=== PATIENT | male | born 1940 | race Caucasian/White ===

== ENCOUNTER 2017-09-04 19:41 | Emergency (ER) | payer MEDICARE ==
[2017-09-04] MEDS ORDERED: NS 0.9% 1000 ML*IV.FLUID IV ONE (22:38)
[2017-09-04] MEDS ORDERED: Acetaminophen TAB* 325 MG PO ONE (22:38)
[2017-09-04] MEDS ORDERED: Albuterol 2.5 MG/3 ML NEB.SOL* (0.083%) INH PRN (22:38)
[2017-09-04] MEDS ORDERED: Albuterol/Ipratropium NEB.SOL* Albuterol 2.5 MG/Ipratropium 0.5 MG 3 ML INH PRN (22:38)
[2017-09-04] MEDS ORDERED: Piperacillin/Tazobac ADVAN(*) 3.375 GM in NS 0.9% 100 ML* 100 ML IVPB ONE (22:38)
[2017-09-04] MEDS ORDERED: Vancomycin(*) 1,500 MG in NS 0.9% 500 ML* 500 ML IVPB ONE (23:00)
[2017-09-04] MEDS ORDERED: Vancomycin(*) 1,000 MG VIAL IVPB SCH (23:00)
[2017-09-04 23:13] LABS: ABS Basophils 0 10^3/ul (0-0.2); ABS Eosinophils 0.1 10^3/ul (0-0.6); ABS Lymphocytes 0.9 10^3/ul (1.0-4.8); ABS Monocytes 1.3 10^3/ul (0-0.8); ABS Neutrophils 8.7 10^3/ul (1.5-7.7); ABS Nucleated RBC 0 10^3/ul; Hematocrit 22 % (42-52); Hemoglobin 7.4 g/dl (14.0-18.0); Lymphocyte % 8.2 % (25-47); Mean Corpuscular HGB Conc 33 g/dl (31-36); Mean Corpuscular Hemoglobin 30 pg (27-31); Mean Corpuscular Volume 89 fL (80-94); Mean Platelet Volume 7 um3 (7.4-10.4); Nucleated Red Blood Cells % 0; Platelet Count 279 10^3/ul (150-450); Red Blood Count 2.51 10^6/ul (4.0-5.4); Red Cell Distribution Width 18 % (10.5-15)
[2017-09-04 23:26] LABS: EGFR Non-African American 69.6 (>60)
[2017-09-04 23:32] LABS: INR 6.73 (0.77-1.02)
[2017-09-04] MEDS ORDERED: Iodixanol* (CONTRAST) 320 MG/ML 100 ML SDV IV ONE (23:56)
[2017-09-05] MEDS ORDERED: Potassium Chlor TAB* 20 MEQ TAB.ER PO ONE (01:25)
[2017-09-05 02:55] LABS: Urine Appearance Cloudy; Urine Blood 2+ (Negative); Urine Color Amber; Urine Ketones Negative (Negative); Urine Protein 1+(30 mg/dL) (Negative); Urine Specific Gravity 1.024 (1.010-1.030); Urine Urobilinogen Positive (Negative)
--- NOTE | 2017-09-05 03:06 | ED ---
Julio Mccarty Tecjoon, scribed for Lorenzo Christine MD on 09/04/17 at 2241 . Complex/Multi-Sys Presentation - HPI Summary HPI Summary: This patient is a 76 year old male sent to [facility] on advice of MD accompanied by family with a chief complaint of abnormal INR levels (>7) since today at approximately 1900. Patient takes 4mg of Coumadin every night for A. Fib, mechanical valve. When he came home on Sunday, it was 2.5. The pain is rated 5/ 10 in severity from his gallbladder. Patient additionally reports very dark, odorous urine, SOB, pain from gallbladder, vomiting, loss of appetite, chills, wheezing. Patient is coughing up dark blood. Patient denies dizziness[place], and an abnormally high liver enzyme level. Patient also has an hx pulmonary embolism. - History Of Current Complaint Chief Complaint: EDGeneral Time Seen by Provider: 09/04/17 22:10 Hx Obtained From: Patient, Family/Computer Console Operator Onset/Duration: Still Present Timing: Constant Severity Initially: Moderate - 5/10 Aggravating Factor(s): nothing Alleviating Factor(s): nothing Associated Signs And Symptoms: Positive: Other. Negative: Dizziness - reports very dark, odorous urine, SOB, pain from gallbladder, vomiting, loss of appetite , chills, wheezing. Patient is coughing up dark blood - Allergies/Home Medications Allergies/Adverse Reactions: Allergies Allergy/AdvReac Type Severity Reaction Status Date / Time Diazepam [From Valium] Allergy See Comment Verified 09/04/17 19:53 pollen Allergy Runny Nose Uncoded 09/04/17 19:53 PMH/Surg Hx/FS Hx/Imm Hx Previously Healthy: No Endocrine/Hematology History: Denies: Hx Diabetes, Hx Thyroid Disease Cardiovascular History: Reports: Hx Hypertension - ON MEDS, Other Cardiovascular Problems/Disorders - AORTIC VALVE Respiratory History: Reports: Hx Chronic Obstructive Pulmonary Disease (COPD), Hx Pulmonary Embolism Denies: Hx Asthma GI History: Reports: Other GI Disorders - Pancreatits, Pancreatic cancer Denies: Hx Ulcer - Cancer History Cancer Type, Location and Year: prostate - Surgical History Surgery Procedure, Year, and Place: CABG, aortic valve replaced - Immunization History Date of Influenza Vaccine: 05/2017 Infectious Disease History: No Infectious Disease History: Denies: Hx Hepatitis, Hx Human Immunodeficiency Virus (HIV), Traveled Outside the [place] in Last 30 Days - Family History Known Family History: Positive: Hypertension - Social History Occupation: Retired Alcohol Use: Rare Hx Substance Use: No Substance Use Type: Reports: None Hx Tobacco Use: Yes Smoking Status (MU): Light Every Day Tobacco Smoker Type: Cigarettes Review of Systems Constitutional: Negative - dizziness Positive: Shortness Of Breath, Other - wheezing, coughing up blood Positive: Vomiting, Other - pain from gallbladder Positive: other - dark, odorous urin All Other Systems Reviewed And Are Negative: Yes Physical Exam - Summary Physical Exam Summary: VITAL SIGNS: Reviewed. GENERAL: Patient is an ill-looking, pale male who is lying in the stretcher. Patient looks like he has jaundice. HEAD AND FACE: No signs of trauma. No ecchymosis, hematomas or skull depressions. No sinus tenderness. EYES: PERRLA, EOMI x 2, Eyes are icteric. EARS: Hearing grossly intact. Ear canals and tympanic membranes are within normal limits. MOUTH: Oropharynx within normal limits. NECK: Supple, trachea is midline, no adenopathy, no JVD, no carotid bruit, no c- spine tenderness, neck with full ROM. CHEST: Symmetric, no tenderness at palpation LUNGS: Lungs have bilateral expiratory wheezes, with rhonchi. CVS: Regular rate and rhythm, S1 and S2 present, no murmurs or gallops appreciated. ABDOMEN: Mild diffuse tenderness EXTREMITIES: FROM in all major joints, no edema, no cyanosis or clubbing. NEURO: Alert and oriented x 3. No acute neurological deficits. Speech is normal and follows commands. SKIN: Dry and warm Triage Information Reviewed: Yes Vital Signs On Initial Exam: Initial Vitals Temp Pulse Resp BP Pulse Ox 98.2 F 72 16 129/52 95 09/04/17 19:45 09/04/17 19:45 09/04/17 19:45 09/04/17 19:45 09/04/17 19:45 Vital Signs Reviewed: Yes Diagnostics - Vital Signs Vital Signs Temp Pulse Resp BP Pulse Ox 09/04/17 19:45 98.2 F 72 16 129/52 95 - Laboratory Lab Results: Lab Results 09/04/17 09/04/17 09/04/17 Range/Units 22:30 22:30 22:30 WBC (3.5-10.8) 10^3/ul RBC (4.0-5.4) 10^6/ul Hgb (14.0-18.0) g/dl Hct (42-52) % MCV (80-94) fL MCH (27-31) pg MCHC (31-36) g/dl RDW (10.5-15) % Plt Count (150-450) 10^3/ul MPV (7.4-10.4) um3 Neut % (Auto) (38-83) % Lymph % (Auto) (25-47) % Norman % (Auto) (1-9) % Eos % (Auto) (0-6) % Baso % (Auto) (0-2) % Absolute Neuts (auto) (1.5-7.7) 10^3/ul Absolute Lymphs (auto) (1.0-4.8) 10^3/ul Absolute Monos (auto) (0-0.8) 10^3/ul Absolute Eos (auto) (0-0.6) 10^3/ul Absolute Basos (auto) (0-0.2) 10^3/ul Absolute Nucleated RBC 10^3/ul Nucleated RBC % INR (Anticoag Therapy) 6.73 H* (0.77-1.02) APTT 60.2 H (26.0-36.3) seconds Sodium 129 L (133-145) mmol/L Potassium 3.3 L (3.5-5.0) mmol/L Chloride 97 L (101-111) mmol/L Carbon Dioxide 24 (22-32) mmol/L Anion Gap 8 (2-11) mmol/L BUN 16 (6-24) mg/dL Creatinine 1.04 (0.67-1.17) mg/dL Est GFR ( Amer) 89.5 (>60) Est GFR (Non-Af Amer) 69.6 (>60) BUN/Creatinine Ratio 15.4 (8-20) Glucose 110 H (70-100) mg/dL Lactic Acid (0.5-2.0) mmol/L Calcium 8.7 (8.6-10.3) mg/dL Total Bilirubin 3.80 H (0.2-1.0) mg/dL AST 124 H (13-39) U/L ALT 135 H (7-52) U/L Alkaline Phosphatase 262 H (34-104) U/L Troponin I 0.04 H* (<0.04) ng/mL C-Reactive Protein 160.12 H (< 5.00) mg/L Total Protein 6.3 L (6.4-8.9) g/dL Albumin 3.2 (3.2-5.2) g/dL Globulin 3.1 (2-4) g/dL Albumin/Globulin Ratio 1.0 (1-3) Urine Color Urine Appearance Urine pH (5-9) Ur Specific [place] (1.010-1.030) Urine Protein (Negative) Urine Ketones (Negative) Urine Blood (Negative) Urine Nitrate (Negative) Urine Bilirubin (Negative) Urine Urobilinogen (Negative) Ur Leukocyte Esterase (Negative) Urine WBC (Auto) (Absent) Urine RBC (Auto) (Absent) Ur Squamous Epith Cells (Absent) Ur Renal Epithelial Cell (Absent) Urine Bacteria (Absent) Urine Glucose (Negative) Blood Type A Positive Antibody Screen Negative Crossmatch See Detail 09/04/17 09/04/17 09/05/17 Range/Units 22:30 22:30 02:40 WBC 11.0 H (3.5-10.8) 10^3/ul RBC 2.51 L (4.0-5.4) 10^6/ul Hgb 7.4 L (14.0-18.0) g/dl Hct 22 L (42-52) % MCV 89 (80-94) fL MCH 30 (27-31) pg MCHC 33 (31-36) g/dl RDW 18 H (10.5-15) % Plt Count 279 (150-450) 10^3/ul MPV 7 L (7.4-10.4) um3 Neut % (Auto) 78.6 (38-83) % Lymph % (Auto) 8.2 L (25-47) % Norman % (Auto) 11.9 H (1-9) % Eos % (Auto) 1.0 (0-6) % Baso % (Auto) 0.3 (0-2) % Absolute Neuts (auto) 8.7 H (1.5-7.7) 10^3/ul Absolute Lymphs (auto) 0.9 L (1.0-4.8) 10^3/ul Absolute Monos (auto) 1.3 H (0-0.8) 10^3/ul Absolute Eos (auto) 0.1 (0-0.6) 10^3/ul Absolute Basos (auto) 0 (0-0.2) 10^3/ul Absolute Nucleated RBC 0 10^3/ul Nucleated RBC % 0 INR (Anticoag Therapy) (0.77-1.02) APTT (26.0-36.3) seconds Sodium (133-145) mmol/L Potassium (3.5-5.0) mmol/L Chloride (101-111) mmol/L Carbon Dioxide (22-32) mmol/L Anion Gap (2-11) mmol/L BUN (6-24) mg/dL Creatinine (0.67-1.17) mg/dL Est GFR ( Amer) (>60) Est GFR (Non-Af Amer) (>60) BUN/Creatinine Ratio (8-20) Glucose (70-100) mg/dL Lactic Acid 1.3 (0.5-2.0) mmol/L Calcium (8.6-10.3) mg/dL Total Bilirubin (0.2-1.0) mg/dL AST (13-39) U/L ALT (7-52) U/L Alkaline Phosphatase (34-104) U/L Troponin I (<0.04) ng/mL C-Reactive Protein (< 5.00) mg/L Total Protein (6.4-8.9) g/dL Albumin (3.2-5.2) g/dL Globulin (2-4) g/dL Albumin/Globulin Ratio (1-3) Urine Color Te[place] Urine Appearance Cloudy Urine pH 6.0 (5-9) Ur Specific [place] 1.024 (1.010-1.030) Urine Protein 1+(30 mg/dl) H (Negative) Urine Ketones Negative (Negative) Urine Blood 2+ H (Negative) Urine Nitrate Negative (Negative) Urine Bilirubin Negative (Negative) Urine Urobilinogen Positive H (Negative) Ur Leukocyte Esterase 3+ H (Negative) Urine WBC (Auto) 3+(>20/hpf) H (Absent) Urine RBC (Auto) Trace(0-2/hpf) (Absent) Ur Squamous Epith Cells Present H (Absent) Ur Renal Epithelial Cell Present H (Absent) Urine Bacteria 3+ H (Absent) Urine Glucose Negative (Negative) Blood Type Antibody Screen Crossmatch Result Diagrams: 09/04/17 22:30 09/04/17 22:30 Lab Statement: Any lab studies that have been ordered have been reviewed, and results considered in the medical decision making process. - CT CT Chest/Abd/Pel CT Interpretation: Positive (See Comments) - Given the patients history of hemoptysis, the left lower lobe densities may alternatively represent hemorrhage. ED physician has reviewed this radiology report. CT Interpretation Completed By: Radiologist Complex Multi-Symp Course/Dx Course Of Treatment: Bloodwork Obtained. Urinalysis Obtained. In the ED course the patient was given Piperacillin, Vancomycin, Iodixanol, Albuterol, Tylenol. We discussed patient care with [facility]. The ED Doctor, Dr. Resendiz agreed to accept transfer. I shared lab and imaging results with family and explained situation with them. The diagnosis is 1. Coagulopathy 2. obstructive jaundice 3. large abdominal hematoma 4.Hemaptosis. Critical hour 70 minutes. - Diagnoses Provider Diagnoses: Coagulopathy, Obstructive jaundice, large abdominal hematoma, Hemoptysis, UTI ( urinary tract infection) - Physician Notifications Discussed Care Of Patient With: Kacy Resendiz - ED Doctor Time Discussed With Above Provider: 02:40 Instructed by Provider To: Transfer - [facility] Admit/Transition Orders Completed By ED Provider: Yes - Critical Care Time Critical Care Time: 75-104 min Discharge - Discharge Plan Condition: Critical Disposition: TRANS HIGHER LVL OF CARE FAC Discharge Disposition Comment: Transferred to [facility] Referrals: Salty Husain, LINUX KERNEL ENGINEER [Primary Care Provider] - The documentation as recorded by the Julio milian Tecjoon accurately reflects the service I personally performed and the decisions made by me, Lorenzo Christine MD.
[2017-09-05 03:50] VITALS: BP 132/57
--- NOTE | 2017-09-05 08:12 | RAD ---
INDICATION: Shortness of breath. COMPARISON: Chest x-ray dated July 06, 2017 TECHNIQUE: Single AP portable view of the chest was obtained. FINDINGS: Image quality is compromised due to the relative inferiority of a portable chest x-ray. There has been interval placement of a left subclavian vein Mediport with the tip terminating at the superior vena cava. The heart and mediastinum exhibit normal size and contour. There is patchy density obscuring the left lung base extending to the left hilum and causing left costophrenic angle blunting. The right lung and upper left lung are otherwise clear. Visualized bones are normal for the patient's age. IMPRESSION: Infiltrate at the left lung base with obscuration of left hemidiaphragm could represent pneumonia, atelectasis or less likely focal pulmonary edema.
--- NOTE | 2017-09-05 08:25 | RAD ---
INDICATION: Elevated INR. Jaundice. Biliary stent. Clinical concern for potential PE. COMPARISON: July 08, 2017 CT abdomen pelvis. TECHNIQUE: Multidetector CT images were obtained from the lung apices to the ischial tuberosities with 88 mL Visipaque 320 IV contrast. No oral contrast administered. Pulmonary angiogram protocol. 3-D arterial reconstructions of the thoracic aorta. CHEST REPORT: Coarse reticular markings and innumerable spherical mass lesions at the LEFT lower lobe with dominant conglomerate of mass lesions measuring up to 4.4 cm AP by 5.9 cm transverse at the basilar segments new compared with the July 08, [address] Less marked coarsened interstitial markings at the RIGHT lung base. Negative for pleural effusion or pneumothorax. Top normal 1 cm short axis LEFT infrahilar lymph node. Remaining thoracic lymph nodes are subcentimeter short axis. Negative for cardiomegaly or pericardial effusion. Mild atherosclerotic plaque of normal diameter thoracic aorta. Negative for aortic dissection. Prosthetic aortic valve. No filling defects are identified from the main to the subsegmental pulmonary arteries to indicate presence of a pulmonary embolism. Median sternotomy wires. Negative for suspicious thoracic osseous lesions. 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 CHEST IMPRESSION: 1. Given marked interval change compared with the July 08, 2017 CT the nodular consolidation and interstitial infiltrate at the LEFT lower lobe is most suspicious for pneumonia however neoplasm is not excluded. Correlate with clinical assessment and consider short interval follow-up after therapy for pneumonia to assess for response. In absence of response to antimicrobial therapy tissue sampling would be suggested for histopathologic assessment. 2. Negative for pulmonary embolism. ABDOMEN PELVIS REPORT: Biliary stent in place. Unchanged mild intrahepatic biliary dilatation. Associated pneumobilia. Subcentimeter cyst at the LEFT medial hepatic segment. Cholelithiasis without additional CT abnormality of the gallbladder. Moderately atrophic pancreas. Ill-defined hypodense and mildly rounded in morphology of the uncinate process of the pancreas without change. Negative for peripancreatic inflammatory change. Unremarkable spleen. Negative for CT abnormality of the upper GI, small bowel, or medially extending appendix. Mild colonic diverticulosis without findings of diverticulitis. Negative for ascites, free air, hernias. Unremarkable adrenal glands. Small bilateral renal cortical cysts and larger parapelvic RIGHT renal cyst. No suspicious focal renal lesions. Bilateral delayed pyelograms and nephrograms. Unremarkable nondilated ureters. Partially distended urinary bladder is unremarkable. Symmetric seminal vesicles. 1.1 cm portal caval lymph node within normal limits. Negative for lymphadenopathy. Atherosclerotic plaque of normal diameter abdominal aorta and iliac arteries. Physiologic distention of the IVC. LEFT iliacus muscle retroperitoneal hematoma measuring up to 4.7 cm AP by 6.8 cm transverse extending over 12 cm cephalocaudal. Negative for suspicious focal osseous lesions. ABDOMEN PELVIS IMPRESSION: 1. Biliary stent in place with unchanged mild intrahepatic biliary dilatation. 2. Cholelithiasis without additional CT abnormality of the gallbladder. 3. Ill-defined hypodense and mildly rounded in morphology of the uncinate process of the pancreas possibly representing a neoplastic lesion without change. 4. Bilateral delayed nephrograms and pyelograms without obstructive uropathy. Correlate for acute pre or intrarenal renal failure. 5. LEFT iliacus muscle retroperitoneal hematoma measuring up to 4.7 cm AP by 6.8 cm transverse extending over 12 cm cephalocaudal
--- NOTE | 2017-09-05 08:36 | ED ---
Progress - Progress Note Progress Note: 09/05/17 0834: Dr. Churchill calls attention to a difference from the night imaging reading in that there are delayed bilateral nephrograms and pyelograms without obstructive uropathy which can indicate acute prerenal or acute renal failure. Pt was transferred to [facility]. Will communicate this information to [facility] and fax the updated report of the CTA chest/abd/pelvis B Leonard KAN 09/05/16 0850. Course/Dx - Course Course Of Treatment: Bloodwork Obtained. Urinalysis Obtained. In the ED course the patient was given Piperacillin, Vancomycin, Iodixanol, Albuterol, Tylenol. We discussed patient care with [facility]. The ED Doctor, Dr. Resendiz agreed to accept transfer. I shared lab and imaging results with family and explained situation with them. The diagnosis is 1. Coagulopathy 2. obstructive jaundice 3. large abdominal hematoma 4.Hemaptosis. Critical hour 70 minutes. - Diagnoses Provider Diagnoses: Coagulopathy, Obstructive jaundice, large abdominal hematoma, Hemoptysis, UTI ( urinary tract infection) - Provider Notifications Time Discussed With Above Provider: 02:40 Instructed by Provider To: Transfer - [facility] Admit/Transition Orders Completed By ED Provider: Yes - Critical Care Time Critical Care Time: 75-104 min
--- NOTE | 2017-09-07 08:46 | PN ---
Progress Note - Progress Note Date of Service: 09/04/17 Note: Patient urine grew enterobacter species He was transferred to a higher level for urology problems Nothing further at this time.
--- NOTE | 2017-09-08 12:30 | ED ---
Progress - Progress Note Progress Note: 09/05/17 0834: Dr. Churchill calls attention to a difference from the night imaging reading in that there are delayed bilateral nephrograms and pyelograms without obstructive uropathy which can indicate acute prerenal or acute renal failure. Pt was transferred to [facility]. Will communicate this information to [facility] and fax the updated report of the CTA chest/abd/pelvis Tamar Valle MD 09/05/16 0864. UPDATE: Urine final cx reveals klebsiella pneum >100,000. Sens's returned as well. Aerobic blood cx's reveal enterobacter species - sens's also available. Pt was transferred - will fwd results to [facility]. tangela Bronson clerk, aware. Course/Dx - Course Course Of Treatment: Bloodwork Obtained. Urinalysis Obtained. In the ED course the patient was given Piperacillin, Vancomycin, Iodixanol, Albuterol, Tylenol. We discussed patient care with [facility]. The ED Doctor, Dr. Resendiz agreed to accept transfer. I shared lab and imaging results with family and explained situation with them. The diagnosis is 1. Coagulopathy 2. obstructive jaundice 3. large abdominal hematoma 4.Hemaptosis. Critical hour 70 minutes. - Diagnoses Provider Diagnoses: Coagulopathy, Obstructive jaundice, large abdominal hematoma, Hemoptysis, UTI ( urinary tract infection) - Provider Notifications Time Discussed With Above Provider: 02:40 Instructed by Provider To: Transfer - [facility] Admit/Transition Orders Completed By ED Provider: Yes - Critical Care Time Critical Care Time: 75-104 min
== END 2017-09-05 03:45 | disposition short-term general hospital (02) ==
LOC: ED 19:41
DX: D68.9 Coagulation defect, unspecified (principal); K83.1 Obstruction of bile duct; N39.0 Urinary tract infection, site not specified; R06.02 Shortness of breath; R04.2 Hemoptysis; R11.10 Vomiting, unspecified; Z86.79 Personal history of other diseases of the circulatory system; Z87.09 Personal history of other diseases of the respiratory system; F17.210 Nicotine dependence, cigarettes, uncomplicated
CPT/HCPCS: 36415; 71010; 71275; 74177; 80053; 81003; 81015; 83605; 84484; 85025; 85610; 85730; 86140; 86850; 86900; 86901; 86922; 86927; 87040; 87077; 87086; 87186; 87205; 93005; 99285; A9270-GY; J2543; J3370; P9017; P9040; Q9967